=== PATIENT | male | born 1980 | race Caucasian/White ===

== ENCOUNTER → 2017-09-18 12:17 | Outpatient (CLI) | payer OTHER, SELFPAY ==
--- NOTE | 2017-09-18 12:23 | RAD_ITS ---
STUDY: X-RAY - LUMBAR SPINE REASON FOR EXAM: Male, 37 years old. Intractable back pain. History of multiple back surgeries. TECHNIQUE: 5 view(s) of the lumbar spine were obtained. COMPARISON: MRI of the lumbar spine June 29, 2016. FINDINGS: There is mild straightening of the normal lumbar lordosis. There is no substantial scoliosis. There is a normal alignment of the vertebrae. Normal vertebral bodies and endplates. There is an interdisc fusion device in the L5-S1 disc space. Otherwise normal disc space heights. There is no evidence of acute fracture or loss of vertebral axial height. There is no demonstrated spondylolysis of the pars interarticulares. The soft tissue structures are unremarkable. RAD/L/S Spine Min 4 Views IMPRESSION: Fusion of L5-S1. There is slight flattening of the lumbar spine. Lumbar spine appears otherwise grossly unremarkable. Electronically Signed: Augie Guaman DO at 16:51 EDT Tel [phone], Service support ,
== END ==
PROVIDERS: Family Provider Family Medicine; PCP Family Medicine; Visit Provider Family Medicine
DX: M54.5 Low back pain (principal); Z98.1 Arthrodesis status
CPT/HCPCS: 72110